=== PATIENT | female | born 1975 | race African-American/Black ===

== ENCOUNTER 2020-03-30 10:57 | Emergency (ER) | payer MEDICAID ==
[2020-03-30 11:29] VITALS: BP 130/84
--- NOTE | 2020-03-30 11:46 | ER Document Report ---
ED Medical Screen (RME) - General Chief Complaint: Finger Injury Stated Complaint: FINGER PAIN/LACERTION Time Seen by Provider: 03/30/20 11:37 Primary Care Provider: ELEUTERIO ALARCON MD [Primary Care Provider] - Follow up as needed Mode of Arrival: Ambulatory Information source: Patient Notes: 44-year-old female presented to the ED for injury to the fingernail on the right middle finger. She states it happened just before coming to the ED. Patient is alert oriented respirations regular nonlabored speaking in full sentences. She does have a history of diabetes type 2 anxiety and depression. Physical Exam - Vital signs Vitals: Temp Pulse Resp BP Pulse Ox 99.0 F 104 H 16 130/84 H 100 03/30/20 11:24 03/30/20 11:24 03/30/20 11:24 03/30/20 11:24 03/30/20 11:24 Course - Vital Signs Vital signs: Temp Pulse Resp BP Pulse Ox 99.0 F 104 H 16 130/84 H 100 03/30/20 11:24 03/30/20 11:24 03/30/20 11:24 03/30/20 11:24 03/30/20 11:24 Doctor's Discharge - Discharge Referrals: ELEUTERIO ALARCON MD [Primary Care Provider] - Follow up as needed
[2020-03-30] MEDS ORDERED: LIDOCAINE 1% INJ-PF (10 MG/ML) 30 ML SDV INJ ONE (11:58)
[2020-03-30] MEDS ORDERED: CEPHALEXIN 500 MG CAPSULE PO ONE (13:03)
--- NOTE | 2020-03-30 13:03 | ER Document Report ---
ED Hand/Wrist Injury - General Chief Complaint: Laceration Stated Complaint: FINGER PAIN/LACERTION Time Seen by Provider: 03/30/20 11:37 Primary Care Provider: ELEUTERIO ALARCON MD [ACTIVE STAFF] - Follow up as needed Mode of Arrival: Ambulatory Information source: Patient Notes: 44-year-old female presented to the ED for injury to the fingernail on the right middle finger. She states it happened just before coming to the ED. Patient is alert oriented respirations regular nonlabored speaking in full sentences. She does have a history of diabetes type 2 anxiety and depression. Patient states she was also very upset and depressed because she had a recent of her sister. She states she had moved to the area to take care of her sister who had cancer and she does not have mental health provider in the area. Did consult mental health provider who came and saw the patient. Constitutional: Negative for fever. HENT: Negative for sore throat. Eyes: Negative for visual changes. Cardiovascular: Negative for chest pain. Respiratory: Negative for shortness of breath. Gastrointestinal: Negative for abdominal pain, vomiting or diarrhea. Genitourinary: Negative for dysuria. Musculoskeletal: Negative for back pain. Skin: Fingernail injury to the right middle finger. She states she caught her fingernail when she went to she will bug out of the car. She tore the fingernail out of the bed half of fingernail. She does have gel nails. Neurological: Negative for headaches, weakness or numbness. 10 point ROS negative except as marked above and in HPI. PHYSICAL EXAMINATION: GENERAL: Well-appearing, well-nourished and in no acute distress. HEAD: Atraumatic, normocephalic. EYES: Pupils equal round extraocular movements intact, conjunctiva are normal. ENT: Nares patent NECK: Normal range of motion LUNGS: No respiratory distress Musculoskeletal: Normal range of motion NEUROLOGICAL: Normal speech, normal gait. PSYCH: Normal mood, normal affect. SKIN: One half of the fingernail on the right middle finger is out of the nailbed. - HPI Injury to: Middle finger - Right middle finger nail injury Onset: Just prior to arrival Where: Home, Outdoors Timing: Still present Quality of pain: Sharp Severity: Moderate Pain Level: 3 - 3.5 - Related Data Allergies/Adverse Reactions: No Known Allergies Allergy (Verified 03/30/20 12:11) Past Medical History - General Information source: Patient - Social History Smoking Status: Former Smoker Frequency of alcohol use: None Drug Abuse: None Lives with: Alone Family History: Reviewed & Not Pertinent Patient has suicidal ideation: No Patient has homicidal ideation: No - Past Medical History Cardiac Medical History: Reports: None Pulmonary Medical History: Reports: None EENT Medical History: Reports: None Neurological Medical History: Reports: None Endocrine Medical History: Reports: Hx Diabetes Mellitus Type 2 Renal/ Medical History: Reports: None Malignancy Medical History: Reports: None GI Medical History: Reports: None Musculoskeletal Medical History: Reports None Skin Medical History: Reports None Psychiatric Medical History: Reports: Hx Anxiety, Hx Depression Traumatic Medical History: Reports: None Infectious Medical History: Reports: None Surgical Hx: Negative Past Surgical History: Reports: None - Immunizations Immunizations up to date: Yes Hx Diphtheria, Pertussis, Tetanus Vaccination: Yes Physical Exam - Vital signs Vitals: Temp Pulse Resp BP Pulse Ox 99.0 F 104 H 16 130/84 H 100 03/30/20 11:24 03/30/20 11:24 03/30/20 11:24 03/30/20 11:24 03/30/20 11:24 Course - Vital Signs Vital signs: Temp Pulse Resp BP Pulse Ox 99.0 F 104 H 16 130/84 H 100 03/30/20 11:24 03/30/20 11:24 03/30/20 11:24 03/30/20 11:24 03/30/20 11:24 Procedures - Laceration/Wound Repair Right Finger 3rd digit Time completed: 13:00 Wound length (cm): 0 - Nail half out of bed, nail put back into bed and stitch through finger and make fingernail Wound's Depth, Shape: Nail-avulsed Laceration pre-procedure: Sterile PPE donned, Sterile drapes applied, Shur-Clens applied Anesthetic type: 1% Lidocaine Volume Anesthetic (mLs): 4 - Digital block to the third finger right hand Wound explored: Clean Irrigated w/ Saline (mLs): 200 Wound Repaired With: Sutures Suture Size/Type: 4:0 Number of Sutures: 1 Post-procedure wound care: Sterile dressing applied, Splint applied Post-procedure NV exam normal: Yes Complications: Yes - Difficult to go through gel nail Discharge - Discharge Clinical Impression: Injury to the right middle fingernail Condition: Stable Disposition: HOME, SELF-CARE Additional Instructions: You were seen today for an injury to your right middle fingernail. It was removed from the nailbed. We have replaced the nail into the nailbed and sutured the nail in place. Please have the suture removed in 7 to 10 days. You can do this at a primary care facility. SOAP CLEANSING: Gently wash the wound daily using a mild soap (like Ivory, Phisoderm, Neutrogena). Use warm water, rubbing gently until all debris, ooze, and crusting have been washed from the wound. Allow to dry briefly (about 10 minutes) after cleaning. Repeat this cleansing at least three times a day for the first two days and then once or twice a day. ANTIBIOTIC OINTMENT PROTECTION: Your wounds are such that dressing them is not practical or optional. After cleansing, you should apply a thin coating of antibiotic ointment (Bacitracin, not Neosporin) to the wounds at least three times daily. This lessens infection risk, and may decrease the amount of scarring. Use a q-tip or dull butter knife, not your finger, to apply this ointment. Any debris or ooze which builds up in the ointment should be gently rubbed off with a sterile gauze pad. Harder crusting may need to be gently scrubbed off with a clean wash cloth with soap and warm water, perhaps applying a warm, wet wash cloth to the wound for ten minutes first. Development of redness, severe itching, or blistering may mean allergy to the ointment. See the doctor. Cephalexin The antibiotic you've been prescribed is a member of the cephalosporin class. This type of antibiotic covers a wide variety of infections, including those of the skin, lungs, and urinary tract. It's useful for staph infections. This antibiotic is slightly similar to the penicillin family. In rare cases, a person who is allergic to penicillin will also be allergic to this medication. If you have had a severe allergic reaction to penicillin, and have not taken this antibiotic since that time, notify your doctor. Antibiotics which cover many germs ("broad spectrum" antibiotics) are more likely to cause diarrhea or "yeast" infections. Women prone to vaginal yeast problems may suffer an attack after taking this antibiotic. In infants, oral thrush (white spots "stuck" on the cheek) or yeast diaper rash may result. See your doctor if these problems occur. Call at once if you develop itching, hives, shortness of breath, or lightheadedness. Splint has been on your finger to protect the nail until it heals. Please remove the splint to clean the finger and apply bacitracin each day for please use the splint for at least the next 4 days to protect his nail while it heals. This nail may eventually fall off but the skin underneath and the nailbed will heal while this nail is in place. FOLLOW-UP CARE: Your sutures should be removed in ___7-10__ days. To facilitate a timely removal of your sutures, you may return to the Emergency Department at [facility]. You do not need to call for an appointment, but the best time to come in for suture removal is early in the morning. If you have been referred to another physician for follow-up care, call that physicians office for an appointment as you were instructed. If you experience a significant change in your laceration, or if you are concerned there may be an infection (swelling, redness, drainage, increasing tenderness, red streaks, tender lumps in the armpit or groin above the laceration, or fever), return to the Emergency Department immediately re-evaluation. Prescriptions: Cephalexin Monohydrate [Keflex 500 mg Capsule] 500 mg PO Q6H 5 Days #20 capsule Forms: Elevated Blood Pressure Referrals: ELEUTERIO ALARCON MD [ACTIVE STAFF] - Follow up as needed
--- NOTE | 2020-03-30 23:55 | PSYCHOLOGICAL NOTE ---
Psych Note - Psych Note Date seen by psych provider: 03/30/20 Time seen by psych provider: 13:20 Psych Note: [id number] Reason for Consult: Anxiety and depression Patient is a 44 year old female who presented to the [facility] ED today for a laceration to her finger. Patient expressed anxiety and was assessed by behavioral health team. Patient reports history of depression and anxiety and is prescribed Lorazepam and Paxil from [facility] psychiatry. Patient has been struggling to cope with grief due to loss of a loved one due to cancer. Patient reports she does not like the way she feels and states she feels cold and anxious since being in the ED. Patient denies suicidal ideations, plan, and intent. Patient reports having 6 kids, 3 in the home, and could never kill herself because of her kids. Patient reports wanting therapy to learn coping skills. Patient was alert and oriented to self, person, place, time and situation. Mood was anxious with congruent affect. She denied current SI/HI. Patient did not appear to be responding to internal stimuli as evidenced by fair eye contact and answering questions appropriately when addressed. Thought processes are linear and organized. Conversational speech was within normal limits for rate, tone and prosody. Intellectual abilities are estimated to be average. Insight, judgment and impulse control were fair as evidenced by reporting she loves her kids and could not commit suicide due to needing to take care of them and loving them. Clinical Presentation: anxiety IVC Criteria per [place] GS 122C Dangerous to others Within the relevant past the individual No has inflicted or attempted to inflict or threatened to inflict serious bodily harm on another AND No that there is a reasonable probability that this conduct will be repeated. OR No has acted in such a way as to create a substantial risk of serious bodily harm to another AND No that there is a reasonable probability that this conduct will be repeated. OR No has engaged in extreme destruction of property AND NO that there is a reasonable probability that this conduct will be repeated. Previous episodes of dangerousness to others, when applicable, may be considered when determining reasonable probability of future dangerous conduct. Clear, cogent, and convincing evidence that an individual has committed a homicide in the relevant past is prima facie evidence of dangerousness to others. Dangerous to self Within the relevant past the individual has done any of the following: acted in such a way as to show ALL of the following: No The individual would be unable without care, supervision, and the continued assistance of others not otherwise available, to exercise self- control, judgment, and discretion in the conduct of the individual's daily responsibilities and social relations or to satisfy the individual's need for nourishment, personal or medical care, half-way, or self-protection and safety. AND No There is a reasonable probability of the individual suffering serious physical debilitation within the near future unless adequate treatment is given. A showing of behavior that is grossly irrational, of actions that the individual is unable to control, of behavior that is grossly inappropriate to the situation, or of other evidence of severely impaired insight and judgment shall create a prima facie inference that the individual is unable to care for himself or herself. OR No has attempted suicide or threatened suicide AND No that there is a reasonable probability of suicide unless adequate treatment is given OR No has mutilated himself or herself or attempted to mutilate himself or herself AND No that there is a reasonable probability of serious self-mutilation unless adequate treatment is given. NOTE: Previous episodes of dangerousness to self, when applicable, may be considered when determining reasonable probability of physical debilitation, suicide, or self-mutilation. Impression\plan: Patient is cleared from acute psychiatric services. Patient engaged appropriately when discussing grief and healing process. Patient is provided local resources to include mobile crisis information. Patient identifies wanting to engage in therapy and was highly encouraged to follow through. Dr. Deng was consulted to care management of this patient; attending physicians in agreement with recommendations and disposition.
== END 2020-03-30 13:29 | disposition home or self-care (01) ==
LOC: ER 10:57
DX: S61.312A Laceration without foreign body of right middle finger with damage to nail, initial encounter (principal); W23.0XXA Caught, crushed, jammed, or pinched between moving objects, initial encounter; Y92.009 Unspecified place in unspecified non-institutional (private) residence as the place of occurrence of the external cause; E11.9 Type 2 diabetes mellitus without complications; F43.21 Adjustment disorder with depressed mood; F32.9 Major depressive disorder, single episode, unspecified; F41.9 Anxiety disorder, unspecified; Z63.4 Disappearance and death of family member; Z79.899 Other long term (current) drug therapy; Z87.891 Personal history of nicotine dependence
CPT/HCPCS: 12001; 99283; J3490

== ENCOUNTER 2020-04-11 11:48 | Emergency (ER) | payer MEDICAID ==
[2020-04-11 12:36] VITALS: BP 129/72
--- NOTE | 2020-04-11 12:49 | ER Document Report ---
ED Suture/Wound Recheck - General Chief Complaint: Suture Removal Stated Complaint: SUTURE REMOVAL Time Seen by Provider: 04/11/20 12:42 Primary Care Provider: BRAYDEN DOUGLAS MD [NO LOCAL MD] - Follow up as needed Mode of Arrival: Ambulatory Information source: Patient Notes: 44-year-old female presented to ED for suture removal from the right middle finger. The suture was placed when her nail came up from the bed. This was to protect her nail to heal. It was placed 10 days ago. There is no redness inflammation or drainage at the site. She states the pain is much better at this time. Suture was removed patient was instructed on care of the finger. Constitutional: Negative for fever. HENT: Negative for sore throat. Eyes: Negative for visual changes. Cardiovascular: Negative for chest pain. Respiratory: Negative for shortness of breath. Gastrointestinal: Negative for abdominal pain, vomiting or diarrhea. Genitourinary: Negative for dysuria. Musculoskeletal: Negative for back pain. Skin: 1 suture in right middle finger no redness no swelling nail is very secure at this time suture removed and Band-Aid applied. Neurological: Negative for headaches, weakness or numbness. 10 point ROS negative except as marked above and in HPI. PHYSICAL EXAMINATION: GENERAL: Well-appearing, well-nourished and in no acute distress. HEAD: Atraumatic, normocephalic. EYES: Pupils equal round extraocular movements intact, conjunctiva are normal. ENT: Nares patent NECK: Normal range of motion LUNGS: No respiratory distress Musculoskeletal: Normal range of motion NEUROLOGICAL: Normal speech, normal gait. PSYCH: Normal mood, normal affect. SKIN: Redness no swelling no signs of infection. Suture removed from right middle finger. There was no laceration this was a nail injury. The suture was to secure the nail. - HPI Previous ED treatment: Nail injur Quality of pain: No pain Severity: None Pain Level: Denies Context: Injury Symptoms since procedure: No complaints Exacerbated by: Denies Relieved by: Denies - Related Data Allergies/Adverse Reactions: No Known Allergies Allergy (Verified 03/30/20 12:11) Past Medical History - General Information source: Patient - Social History Smoking Status: Never Smoker Lives with: Family Family History: Reviewed & Not Pertinent Patient has suicidal ideation: No Patient has homicidal ideation: No - Past Medical History Cardiac Medical History: Reports: None Pulmonary Medical History: Reports: None EENT Medical History: Reports: None Neurological Medical History: Reports: None Endocrine Medical History: Reports: Hx Diabetes Mellitus Type 2 Renal/ Medical History: Reports: None Malignancy Medical History: Reports: None GI Medical History: Reports: None Musculoskeletal Medical History: Reports None Skin Medical History: Reports None Psychiatric Medical History: Reports: Hx Anxiety, Hx Depression Traumatic Medical History: Reports: None Infectious Medical History: Reports: None Surgical Hx: Negative Past Surgical History: Reports: None - Immunizations Immunizations up to date: Yes Hx Diphtheria, Pertussis, Tetanus Vaccination: Yes Physical Exam - Vital signs Vitals: Temp Pulse Resp BP Pulse Ox 98.0 F 100 18 129/72 H 99 04/11/20 12:34 04/11/20 12:34 04/11/20 12:34 04/11/20 12:34 04/11/20 12:34 Course - Vital Signs Vital signs: Temp Pulse Resp BP Pulse Ox 98.0 F 100 18 129/72 H 99 04/11/20 12:34 04/11/20 12:34 04/11/20 12:34 04/11/20 12:34 04/11/20 12:34 Discharge - Discharge Clinical Impression: Visit for suture removal Condition: Stable Disposition: HOME, SELF-CARE Instructions: Acetaminophen, Suture Removal Referrals: BRAYDEN DOUGLAS MD [NO LOCAL MD] - Follow up as needed
== END 2020-04-11 12:47 | disposition home or self-care (01) ==
LOC: ER 11:48
DX: S61.212D Laceration without foreign body of right middle finger without damage to nail, subsequent encounter (principal); X58.XXXD Exposure to other specified factors, subsequent encounter